=== PATIENT | female | born 1980 | race Two or more races ===

== ENCOUNTER 2019-02-18 16:55 | Emergency (ER) | payer OTHER ==
[~2019-02-18] VITALS: Ht 162.6 cm; Wt 81.6 kg
[2019-02-18] MEDS ORDERED: DICYCLOMINE HCL 10 MG CAPSULE PO ONE (17:15)
[2019-02-18] MEDS ORDERED: IV NORMAL SALINE 1000ML BAG 1,000 ML IV ONE (17:15)
[2019-02-18 17:21] LABS: BASO # 0.1 x10^3/uL (0.0-0.2); BASO % 1 % (0-3); EOS # 0.2 x10^3/uL (0.0-0.7); EOS % 3 % (0-3); HEMOGLOBIN 13.3 g/dL (12.0-15.5); LYMPH # 2.6 x10^3/uL (1.0-4.8); LYMPH % 31 % (24-48); MEAN CORPUSCULAR HEMOGLOBIN 31 pg (25-35); MEAN CORPUSCULAR HGB CONC 35 g/dL (31-37); MEAN CORPUSCULAR VOLUME 90 fL (79-100); MONO # 0.6 x10^3/uL (0.0-1.1); MONO % 7 % (0-9); NEUT # 4.9 x10^3uL (1.8-7.7); NEUT % 58 % (31-73); PLATELET COUNT 317 x10^3/uL (140-400); RED BLOOD COUNT 4.24 x10^6/uL (3.50-5.40); RED CELL DISTRIBUTION WIDTH 12.9 % (11.5-14.5); WHITE BLOOD COUNT 8.4 x10^3/uL (4.0-11.0)
[2019-02-18 17:39] LABS: CALCIUM 9.1 mg/dL (8.5-10.1); CREATININE 0.6 mg/dL (0.6-1.0); GFR 110.7; POTASSIUM 3.7 mmol/L (3.5-5.1)
[2019-02-18 17:44] LABS: ALBUMIN 3.5 g/dL (3.4-5.0); ALBUMIN/GLOBULIN RATIO 0.9 (1.0-1.7); TOTAL BILIRUBIN 0.4 mg/dL (0.2-1.0); TOTAL PROTEIN 7.2 g/dL (6.4-8.2)
[2019-02-18] MEDS ORDERED: CONTRAST GIVEN. MC PRN (17:45)
[2019-02-18 18:00] VITALS: BP 147/91
[2019-02-18] MEDS ORDERED: IOHEXOL 300 MG/ML 100ML VIAL. IV ONE (18:00)
--- NOTE | 2019-02-18 18:21 | PHYS DOC ---
Past Medical History Past Medical History: Hypothyroid (WILLIAM MACKEY APRN) Past Surgical History: , Tubal ligation (WILLIAM MACKEY APRN) Alcohol Use: None Drug Use: None (WILLIAM MACKEY APRN) Adult General Chief Complaint Chief Complaint: DIARRHEA HPI HPI Patient is a 38 year old female with history of hypothyroidism who presents to the ED today complaining of diarrhea that began today. Patient is also complaining of slight abdominal cramping. Denies any nausea vomiting. She states she read online this diarrhea could be caused from HIV. She states she's been in the same relationship with one partner for 1 year. (WILLIAM MACKEY APRN) Review of Systems Review of Systems Constitutional: Denies fever or chills [] Eyes: Denies change in visual acuity, redness, or eye pain [] HENT: Denies nasal congestion or sore throat [] Respiratory: Denies cough or shortness of breath [] Cardiovascular: No additional information not addressed in HPI [] GI: Reports abdominal pain and diarrhea, denies nausea, vomiting, bloody stools : Denies dysuria or hematuria [] Musculoskeletal: Denies back pain or joint pain [] Integument: Denies rash or skin lesions [] Neurologic: Denies headache, focal weakness or sensory changes [] All other systems were reviewed and found to be within normal limits, except as documented in this note. (WILLIAM MACKEY APRN) Current Medications Current Medications Current Medications Medications (Trade) Dose Ordered Sig/Babs Start Time Stop Time Status Last Admin Dose Admin Dicyclomine HCl (Bentyl) 20 mg 1X ONCE 02/18/19 17:15 02/18/19 17:21 DC 02/18/19 17:33 20 MG Info (CONTRAST GIVEN -- Rx MONITORING) 1 each PRN DAILY PRN 02/18/19 17:45 02/18/19 20:14 DC Iohexol (Omnipaque 300 Mg/ml) 75 ml 1X ONCE 02/18/19 18:00 02/18/19 18:01 DC 02/18/19 18:09 75 ML Sodium Chloride 1,000 ml @ 1,000 mls/hr 1X ONCE 02/18/19 17:15 02/18/19 18:14 DC 02/18/19 17:33 1,000 MLS/HR (DERRICK BLAND MD) Allergies Allergies Allergies Coded Allergies Type Severity Reaction Last Updated Verified codeine Allergy Mild RASH 02/18/19 Yes (DERRICK BLAND MD) Physical Exam Physical Exam Constitutional: Well developed, well nourished, no acute distress, non-toxic appearance. [] HENT: Normocephalic, atraumatic, bilateral external ears normal, oropharynx moist, no oral exudates, nose normal. [] Eyes: PERRLA, EOMI, conjunctiva normal, no discharge. [] Neck: Normal range of motion, no tenderness, supple, no stridor. [] Cardiovascular:Heart rate regular rhythm, no murmur [] Lungs & Thorax: Bilateral breath sounds clear to auscultation [] Abdomen: Bowel sounds normal, soft, no tenderness, no masses, no pulsatile masses. [] Skin: Warm, dry, no erythema, no rash. [] Back: No tenderness, no CVA tenderness. [] Extremities: No tenderness, no cyanosis, no clubbing, ROM intact, no edema. [] Neurologic: Alert and oriented X 3, normal motor function, normal sensory function, no focal deficits noted. [] Psychologic: Affect normal, judgement normal, mood normal. [] (WILLIAM MACKEY APRN) Current Patient Data Vital Signs Vital Signs Date Time Temp Pulse Resp B/P (MAP) Pulse Ox O2 Delivery O2 Flow Rate FiO2 02/18/19 18:00 70 147/91 (109) 99 Room Air 02/18/19 17:00 98.3 18 98.3 (DERRICK BLAND MD) Lab Values Laboratory Tests Test 02/18/19 17:14 02/18/19 19:15 White Blood Count 8.4 x10^3/uL (4.0-11.0) Red Blood Count 4.24 x10^6/uL (3.50-5.40) Hemoglobin 13.3 g/dL (12.0-15.5) Hematocrit 38.0 % (36.0-47.0) Mean Corpuscular Volume 90 fL (79-100) Mean Corpuscular Hemoglobin 31 pg (25-35) Mean Corpuscular Hemoglobin Concent 35 g/dL (31-37) Red Cell Distribution Width 12.9 % (11.5-14.5) Platelet Count 317 x10^3/uL (140-400) Neutrophils (%) (Auto) 58 % (31-73) Lymphocytes (%) (Auto) 31 % (24-48) Monocytes (%) (Auto) 7 % (0-9) Eosinophils (%) (Auto) 3 % (0-3) Basophils (%) (Auto) 1 % (0-3) Neutrophils # (Auto) 4.9 x10^3uL (1.8-7.7) Lymphocytes # (Auto) 2.6 x10^3/uL (1.0-4.8) Monocytes # (Auto) 0.6 x10^3/uL (0.0-1.1) Eosinophils # (Auto) 0.2 x10^3/uL (0.0-0.7) Basophils # (Auto) 0.1 x10^3/uL (0.0-0.2) Sodium Level 137 mmol/L (136-145) Potassium Level 3.7 mmol/L (3.5-5.1) Chloride Level 103 mmol/L (98-107) Carbon Dioxide Level 28 mmol/L (21-32) Anion Gap 6 (6-14) Blood Urea Nitrogen 12 mg/dL (7-20) Creatinine 0.6 mg/dL (0.6-1.0) Estimated GFR (Cockcroft-Gault) 110.7 BUN/Creatinine Ratio 20 (6-20) Glucose Level 111 mg/dL (70-99) H Calcium Level 9.1 mg/dL (8.5-10.1) Total Bilirubin 0.4 mg/dL (0.2-1.0) Aspartate Amino Transferase (AST) 12 U/L (15-37) L Alanine Aminotransferase (ALT) 21 U/L (14-59) Alkaline Phosphatase 92 U/L (46-116) Total Protein 7.2 g/dL (6.4-8.2) Albumin 3.5 g/dL (3.4-5.0) Albumin/Globulin Ratio 0.9 (1.0-1.7) L Lipase 93 U/L (73-393) Ethyl Alcohol Level < 10 mg/dL (0-10) Urine Collection Type Unknown Urine Color Yellow Urine Clarity Clear Urine pH 7.5 Urine Specific [place] 1.025 Urine Protein Negative mg/dL (NEG-TRACE) Urine Glucose (UA) Negative mg/dL (NEG) Urine Ketones (Stick) Negative mg/dL (NEG) Urine Blood Negative (NEG) Urine Nitrite Negative (NEG) Urine Bilirubin Negative (NEG) Urine Urobilinogen Dipstick 0.2 mg/dL (0.2 mg/dL) Urine Leukocyte Esterase Negative (NEG) Urine RBC Occ /HPF (0-2) Urine WBC 0 /HPF (0-4) Urine Squamous Epithelial Cells Few /LPF Urine Bacteria Few /HPF (0-FEW) Urine Opiates Screen Neg (NEG) Urine Methadone Screen Neg (NEG) Urine Barbiturates Neg (NEG) Urine Phencyclidine Screen Neg (NEG) Urine Amphetamine/Methamphetamine Neg (NEG) Urine Benzodiazepines Screen Neg (NEG) Urine Cocaine Screen Neg (NEG) Urine Cannabinoids Screen Neg (NEG) Urine Ethyl Alcohol Neg (NEG) Laboratory Tests 02/18/19 17:14 Laboratory Tests 02/18/19 17:14 (DERRICK BLAND MD) EKG EKG [] (WILLIAM MACKEY APRN) Radiology/Procedures Radiology/Procedures []PROCEDURE: CT ABD PELV W/ IV CONTRST ONLY PQRS Compliance Statement: One or more of the following individualized dose reduction techniques were utilized for this examination: 1. Automated exposure control 2. Adjustment of the mA and/or kV according to patient size 3. Use of iterative reconstruction technique CT abdomen/pelvis with contrast 02/18/2019 5:10 PM INDICATION: Diarrhea COMPARISON: None available TECHNIQUE: Multiple axial CT images of the abdomen and pelvis were obtained after the intravenous administration of 75 mL Omnipaque 300. Coronal and sagittal reformats are provided. FINDINGS: Lung bases are clear. Heart size is within normal limits. Liver, spleen, bilateral adrenal glands, pancreas and gallbladder are normal in appearance. The abdominal aorta is normal in course and caliber. There are no pathologically enlarged lymph nodes in the abdomen and pelvis. There is no abdominal free fluid. There is no free intraperitoneal air. Small hiatal hernia. Focal area of hypoattenuation within the stomach lumen most favors recently ingested material. Small large bowel loops are normal in caliber. Mild circumferential wall thickening is identified involving the splenic flexure, likely secondary to underdistention. Appendix is normal. No dilated loops of small or large bowel. No evidence for bowel obstruction or inflammation. The kidneys enhance symmetrically. There is no suspicious renal mass. There is no hydronephrosis. There are no suspected calculi within the kidneys, ureters or urinary bladder. Urinary bladder is within normal limits given degree of distention. Uterus is normal by CT. Follicular changes are identified in the adnexa bilaterally. No significant pelvic free fluid. Moderate degenerative disc disease identified at L5-S1 with bilateral neuroforaminal stenosis and at least mild spinal canal stenosis. IMPRESSION: No acute abnormality is identified in abdomen and pelvis, as described in detail above. Electronically signed by: Ofelia Antonio MD (02/18/2019 6:31 PM) [facility] DICTATED and SIGNED BY: OFELIA ANTONIO MD DATE: 02/18/191830 (WILLIAM MACKEY APRN) Course & Med Decision Making Course & Med Decision Making Pertinent Labs and Imaging studies reviewed. (See chart for details) This is a 38-year-old female patient who presents to the ED today complaining of diarrhea that began today, also complaining of abdominal cramping, she is concerned she has HIV because of this diarrhea, she apparently googled information on diarrhea which linked diarrhea to HIV. Patient does not participate in high-risk behavior. She states she's been with history for 1 year.Informed patient we do not think this diarrhea is from HIV but she can be tested for HIV at the health department. Patient's CBC, CMP, lipase, UA,-negative for any acute findings. Patient is in no distress. Was given IV fluids, nausea medicine, she states she feels much better. She was discharged to home. She has a PCP, instructed to follow-up in the course of this week or next week. (WILLIAM MACKEY APRN) Course & Med Decision Making Staff Physician Addendum: I was working in the ER during the course of this patient's visit. I was avail able for consultation as needed, but I was not directly involved in the care of this patient. (DERRICK BLAND MD) Dragon Disclaimer Dragon Disclaimer This electronic medical record was generated, in whole or in part, using a voice recognition dictation system. (WILLIAM MACKEY APRN) Departure Departure Impression: Primary Impression: Diarrhea Disposition: 01 HOME, SELF-CARE Condition: STABLE Referrals: NO PCP (PCP) Follow-up with your doctor in one week Patient Instructions: Diarrhea, [id number] Additional Instructions: You were evaluated in the emergency room for diarrhea. There are so many reasons people have diarrhea. You can take [id number] Imodium as needed for your symptoms. Please follow-up with your doctor in the course of this week or next week. Push fluids. Maintain good hand hygiene. Come back to the ED at any point symptoms worsen. Problem Qualifiers Primary Impression: Diarrhea Diarrhea type: unspecified type Qualified Codes: R19.7 - Diarrhea, unspecified WILLIAM MACKEY APRN Feb 18, 2019 18:21 DERRICK BLAND MD Feb 19, 2019 04:59
--- NOTE | 2019-02-18 18:34 | RAD ---
PQRS Compliance Statement: One or more of the following individualized dose reduction techniques were utilized for this examination: 1. Automated exposure control 2. Adjustment of the mA and/or kV according to patient size 3. Use of iterative reconstruction technique CT abdomen/pelvis with contrast 02/18/2019 5:10 PM INDICATION: Diarrhea COMPARISON: None available TECHNIQUE: Multiple axial CT images of the abdomen and pelvis were obtained after the intravenous administration of 75 mL Omnipaque 300. Coronal and sagittal reformats are provided. FINDINGS: Lung bases are clear. Heart size is within normal limits. Liver, spleen, bilateral adrenal glands, pancreas and gallbladder are normal in appearance. The abdominal aorta is normal in course and caliber. There are no pathologically enlarged lymph nodes in the abdomen and pelvis. There is no abdominal free fluid. There is no free intraperitoneal air. Small hiatal hernia. Focal area of hypoattenuation within the stomach lumen most favors recently ingested material. Small large bowel loops are normal in caliber. Mild circumferential wall thickening is identified involving the splenic flexure, likely secondary to underdistention. Appendix is normal. No dilated loops of small or large bowel. No evidence for bowel obstruction or inflammation. The kidneys enhance symmetrically. There is no suspicious renal mass. There is no hydronephrosis. There are no suspected calculi within the kidneys, ureters or urinary bladder. Urinary bladder is within normal limits given degree of distention. Uterus is normal by CT. Follicular changes are identified in the adnexa bilaterally. No significant pelvic free fluid. Moderate degenerative disc disease identified at L5-S1 with bilateral neuroforaminal stenosis and at least mild spinal canal stenosis. IMPRESSION: No acute abnormality is identified in abdomen and pelvis, as described in detail above. Electronically signed by: Latonya Lang MD (02/18/2019 6:31 PM) [id number]
[2019-02-18 19:25] LABS: BILIRUBIN,URINE NEGATIVE (NEG); CLARITY,URINE CLEAR; COLOR,URINE YELLOW; NITRITE,URINE NEGATIVE (NEG); PH,URINE 7.5; PROTEIN,URINE NEGATIVE (NEG-TRACE); UROBILINOGEN,URINE 0.2 mg/dL (0.2 mg/dL)
[2019-02-18 19:31] LABS: BACTERIA,URINE FEW /HPF (0-FEW); RBC,URINE OCC /HPF (0-2); SQUAMOUS EPITHELIAL CELL,UR FEW /LPF; WBC,URINE 0 /HPF (0-4)
[2019-02-18 19:38] LABS: BARBITURATES NEG (NEG); BENZODIAZEPINES NEG (NEG); CANNABINOIDS NEG (NEG); COCAINE NEG (NEG); METHADONE NEG (NEG); OPIATES NEG (NEG); PHENCYCLIDINE NEG (NEG)
[2019-02-18 19:40] LABS: AMPHETAMINE/METHAMPHETAMINE NEG (NEG)
== END 2019-02-18 20:13 | disposition home or self-care (01) ==
LOC: ER 16:55
DX: R19.7 Diarrhea, unspecified (principal); R10.9 Unspecified abdominal pain; E03.9 Hypothyroidism, unspecified; Z98.890 Other specified postprocedural states; Z98.51 Tubal ligation status; Z88.5 Allergy status to narcotic agent
CPT/HCPCS: 36415; 74177; 80053; 80307; 81001; 83690; 85025; 96360; 99285; G0480; J7030; Q9967